=== PATIENT | male | born 1990 | race Caucasian/White ===

== ENCOUNTER 2020-07-27 22:34 | Emergency (ER) | payer SELFPAY ==
[2020-07-27 22:38] VITALS: BP 130/86; PULSE 95; RESP 16; TEMP 36.5; O2SAT 100
[2020-07-27 23:05] VITALS: BP 116/79; PULSE 84; RESP 15; O2SAT 96
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
--- NOTE | 2020-07-27 23:53 | PC.NURSE ---
pt gave this rn permission to call his mother and let her know hes here. mother did not answer, no voicemail set up at this time
[2020-07-28 00:25] VITALS: BP 94/68; PULSE 84; RESP 20; O2SAT 94
[2020-07-28 00:55] VITALS: BP 101/76; PULSE 86; RESP 14; O2SAT 98
--- NOTE | 2020-07-28 01:35 | PC.NURSE ---
pt ambulated in hallway with steady gait. notified. pt also awake, attempting to call mother.
[2020-07-28 01:44] VITALS: BP 108/77; PULSE 80; RESP 18; O2SAT 99
== END 2020-07-28 01:45 | disposition home or self-care (01) ==
PROVIDERS: Emergency Provider Emergency Medicine
DX: T40.601A Poisoning by unspecified narcotics, accidental (unintentional), initial encounter (principal)
CPT/HCPCS: 99281; 99283

== ENCOUNTER 2020-10-22 02:26 | Emergency (ER) | payer SELFPAY ==
[2020-10-22 02:29] VITALS: BP 140/90; PULSE 87; RESP 16; TEMP 36.6; O2SAT 100
--- NOTE | 2020-10-22 03:03 | ED_ITS ---
HPI - General Adult General Chief complaint: Dental/Oral Stated complaint: dental pain Time Seen by Provider: 10/22/20 02:58 History of Present Illness HPI narrative: Patient 30-year-old gentleman who presents emerged department chief complaint of dental pain patient reports the pain began yesterday states that his aching and he has a broken tooth. Patient denies fever reports of localized swelling in his mouth denies any airway compromise denies difficulty swallowing Related Data Allergies Allergy/AdvReac Type Severity Reaction Status Date / Time No Known Allergies Allergy Mild Verified 12/01/09 01:21 Review of Systems Review of Systems: Narrative: A 10 system review of systems was completed on the patient and is negative except for what is stated in the HPI. Nursing and ancillary documentation was reviewed. Exam Narrative: Exam Narrative: GENERAL: Well-appearing, well-nourished, and in no acute distress. HEAD: Normocephalic, atraumatic. EYES: PERRLA and EOMI. ENT: Nares clear, no rhinorrhea or epistaxis. Mucous membranes moist. There is swelling in the lower mandible in the molar area NECK: Supple. CHEST: Clear to auscultation. No respiratory distress. HEART: Regular rate and rhythm. No murmur heard. Normal peripheral pulses. ABDOMEN: Soft, nontender, nondistended, normal active bowel sounds. EXTREMITIES: Normal range of motion. No edema. SKIN: Warm, dry, no rash. NEURO: No focal deficits. Alert and oriented x3. PSYCH: Normal mood and affect. Course Vital Signs Vital signs: Vital Signs Temperature 36.6 C 10/22/20 02:29 Pulse Rate 87 10/22/20 02:29 Respiratory Rate 16 10/22/20 02:29 Blood Pressure 140/90 10/22/20 02:29 Pulse Oximetry 100 10/22/20 02:29 Temperature 36.6 C 10/22/20 02:29 Pulse Rate 87 10/22/20 02:29 Respiratory Rate 16 10/22/20 02:29 Blood Pressure 140/90 10/22/20 02:29 Pulse Oximetry 100 10/22/20 02:29 Medical Decision Making Vital Signs Vital Signs: Vital Signs Temperature 36.6 C 10/22/20 02:29 Pulse Rate 87 10/22/20 02:29 Respiratory Rate 16 10/22/20 02:29 Blood Pressure 140/90 10/22/20 02:29 Pulse Oximetry 100 10/22/20 02:29 Temperature 36.6 C 10/22/20 02:29 Pulse Rate 87 10/22/20 02:29 Respiratory Rate 16 10/22/20 02:29 Blood Pressure 140/90 10/22/20 02:29 Pulse Oximetry 100 10/22/20 02:29 Discharge Plan Discharge Clinical Impression: Dental abscess, Toothache Patient Disposition: Home, Self-Care Condition: Stable Instructions: Antibiotic Form, Dental Abscess (ED), Toothache (ED) Additional Instructions: Please follow-up with your dentist as soon as possible Prescriptions: New amoxicillin 500 mg capsule 500 mg PO Q12H 10 Days Qty: 20 RF: 0 ibuprofen 800 mg tablet 800 mg PO TID PRN (Reason: pain) Qty: 21 RF: 0 Follow-up/Referrals: PHYSICIAN,SPLITTING MACHINE OPERATOR HELPER [Primary Care Provider] - Ramez Montilla MD [Physician] - 1 Week Stand Alone Forms: Work/School Release IP Time of Disposition: 03:16
[2020-10-22] MEDS: IBUPROFEN 400 MG TABLET 800 MG PO (03:23)
[2020-10-22] MEDS: AMOXICILLIN 500 MG CAPSULE PO (03:23)
[2020-10-22 03:45] VITALS: BP 138/87; PULSE 79; RESP 18; O2SAT 99
== END 2020-10-22 03:47 | disposition home or self-care (01) ==
PROVIDERS: Emergency Provider Emergency Medicine
DX: K04.7 Periapical abscess without sinus (principal); K08.89 Other specified disorders of teeth and supporting structures
CPT/HCPCS: 99283; A9270

== ENCOUNTER 2021-11-27 18:59 | Emergency (ER) | payer OTHER, SELFPAY ==
--- NOTE | ~2021-11-27 | CT_ITS ---
EXAMINATION: CT abdomen pelvis wo con DATE: 11/27/2021 19:44 INDICATION: Left flank pain TECHNIQUE: Computed tomography (CT) of the abdomen and pelvis was performed without intravenous contr ast. The dose-length product (DLP) was 416.18 mGy-cm. Automated exposure control and iterative recons truction technique were employed. COMPARISON: None FINDINGS: The lung bases are clear. The heart size is normal. The liver, spleen, gallbladder, and adr enal glands are normal. There is fatty replacement in the head and body of the pancreas. The right ki dney is unremarkable. There is a 3 mm stone at the left ureterovesicular junction which causes mild l eft hydroureteronephrosis. No pathologically enlarged abdominal or pelvic lymph nodes are identified. There is no free intraperitoneal gas or evidence of bowel obstruction. IMPRESSION: 1. 3 mm stone at the left ureterovesicular junction causing mild left hydroureteronephrosis. Reviewed, dictated and finalized at location F. IMPRESSION: 1. 3 mm stone at the left ureterovesicular junction causing mild left hydrouret eronephrosis.
[2021-11-27 19:01] VITALS: BP 141/89; PULSE 100; RESP 18; TEMP 36.6; O2SAT 100
[2021-11-27] MEDS: SODIUM CHLORIDE 0.9% IV 1,000 ML 999 ML IV CONT ×2 (19:25→20:39)
--- NOTE | 2021-11-27 19:45 | PC.NURSE ---
patient refused pain meds.
[2021-11-27] MEDS: TAMSULOSIN HCL 0.4 MG CAPSULE PO (20:34)
--- NOTE | 2021-11-27 21:25 | ED.GENADULT ---
HPI - General Adult General Chief complaint: Abdominal Pain Stated complaint: left flank Time Seen by Provider: 11/27/21 19:04 History of Present Illness HPI narrative: Patient is a 31-year-old male who presents ER with concerns for kidney stone. Began having pain on his left side yesterday. Child had severe pain in his left lower quadrant make him feel like he needs to be. It goes into his testicle. Associate with hematuria. No fevers or chills or sweats. No dysuria. No alleviating factors at home. Related Data Allergies Allergy/AdvReac Type Severity Reaction Status Date / Time No Known Allergies Allergy Mild Verified 12/01/09 01:21 Review of Systems Review of Systems: All systems reviewed & are unremarkable except as noted in HPI and below Constitutional: Constitutional: Denies chills and Denies fever(s) Gastrointestinal: Gastrointestinal: Reports abdominal pain, Reports nausea and Denies vomiting Genitourinary: Genitourinary: Reports hematuria, Reports oliguria, Denies dysuria and Reports testicular pain PMFSH Past Medical History Medical History (Updated 11/27/21 @ 21:30 by Alexandru Youngblood MD) Kidney stones Surgical History Surgical History (Updated 11/27/21 @ 21:28 by Alexandru Youngblood MD) No pertinent past surgical history Social History Social History (Updated 11/27/21 @ 21:28 by Alexandru Youngblood MD) Social History: History of tobacco use Exam Narrative: GENERAL: Uncomfortable-appearing, well-nourished, and in no acute distress. HEAD: Normocephalic, atraumatic. ENT: Mucous membranes moist. CHEST: Clear to auscultation. No respiratory distress. HEART: Regular rate and rhythm. Normal peripheral pulses. ABDOMEN: Soft, mild palpation left lower quadrant, nondistended. EXTREMITIES: Normal range of motion. No edema. SKIN: Warm, dry, no rash. NEURO: Alert and oriented x3. PSYCH: Normal mood and affect. Course Course Emergency Course: Pain improved with Toradol. Will give second liter of fluid as patient had difficulty urinating. Vital Signs Vital signs: Vital Signs Temperature 97.9 F 11/27/21 19:01 Pulse Rate 100 11/27/21 19:01 Respiratory Rate 18 11/27/21 19:01 Blood Pressure 141/89 H 11/27/21 19:01 Pulse Oximetry 100 11/27/21 19:01 Oxygen Delivery Room Air 11/27/21 19:01 Temperature 97.9 F 11/27/21 19:01 Pulse Rate 100 11/27/21 19:01 Respiratory Rate 18 11/27/21 19:01 Blood Pressure 141/89 H 11/27/21 19:01 Pulse Oximetry 100 11/27/21 19:01 Oxygen Delivery Room Air 11/27/21 19:01 Medical Decision Making Vital Signs Vital Signs: Vital Signs Temperature 97.9 F 11/27/21 19:01 Pulse Rate 100 11/27/21 19:01 Respiratory Rate 18 11/27/21 19:01 Blood Pressure 141/89 H 11/27/21 19:01 Pulse Oximetry 100 11/27/21 19:01 Oxygen Delivery Room Air 11/27/21 19:01 Temperature 97.9 F 11/27/21 19:01 Pulse Rate 100 11/27/21 19:01 Respiratory Rate 18 11/27/21 19:01 Blood Pressure 141/89 H 11/27/21 19:01 Pulse Oximetry 100 11/27/21 19:01 Oxygen Delivery Room Air 11/27/21 19:01 Lab Data Labs: Lab Results 11/27/21 Range/Units 21:17 Urine Color Yellow (Yellow) Urine Appearance Slightly cloudy (Clear) Urine pH 5.5 (5.0-9.0) Ur Specific [place] 1.025 (1.001-1.035) Urine Protein 1+ H (Negative) mg/dL Urine Glucose (UA) Negative (Negative) mg/dL Urine Ketones Negative (Negative) mg/dL Ur Blood (Man) 3+ H (Negative) Urine Nitrate Negative (Negative) Urine Bilirubin Negative (Negative) Urine Urobilinogen 0.2 (<2.0) mg/dL Leukocyte Esterase Rfl Negative (Negative) SHERRIE/UL Urine RBC >75 H (0-2) /hpf Urine WBC 4-6 H /hpf Ur Squamous Epith Cells Rare (Few) /hpf Urine Bacteria Trace /hpf Hyaline Casts 3-4 H (None) /lpf Urine Mucus Moderate H /lpf Discharge Plan Discharge Clinical Impression: Ureterolithiasis Patient Disposit
[2021-11-27 21:28] LABS: Add Urine Microscopic? YES; Appearance Urine Slightly Cloudy (Clear); Bilirubin Urine Negative (Negative); Blood Urine 3+ (Negative); Color Urine Yellow (Yellow); Glucose Urine UA Negative (Negative); Ketones Urine Negative (Negative); Leukocyte Esterase Ur Negative LEU/UL (Negative); Nitrate Urine Negative (Negative); Protein Urine 1+ mg/dL (Negative); Specific Grav Ur 1.025 (1.001-1.035); Urobilinogen Urine 0.2 mg/dL (<2.0); pH Urine 5.5 (5.0-9.0)
[2021-11-27 21:34] LABS: Bacteria Urine Trace /hpf; Mucus Urine Moderate /lpf; RBC Urine >75 /hpf (0-2); Squamous Epithelial Cell Urine Rare /hpf (Few)
[2021-11-27 21:59] VITALS: BP 132/87; PULSE 88; RESP 18; O2SAT 99
== END 2021-11-27 22:00 | disposition home or self-care (01) ==
PROVIDERS: Emergency Provider Emergency Medicine
DX: N13.2 Hydronephrosis with renal and ureteral calculous obstruction (principal); Z87.442 Personal history of urinary calculi
CPT/HCPCS: 74176; 81001; 96360; 96361; 99284; A9270; J7030

== ENCOUNTER 2022-11-28 20:21 | Emergency (ER) | payer MEDICAID, SELFPAY ==
[2022-11-28 20:24] VITALS: BP 147/98; PULSE 135; RESP 20; TEMP 36; O2SAT 99
--- NOTE | 2022-11-28 20:29 | ECG_ITS ---
Measurements Intervals [place] Rate: 122 P: 47 MN: 122 QRS: 15 QRSD: 79 T: 34 QT: 301 QTc: 430 Interpretive Statements SINUS TACHYCARDIA ABNORMAL RHYTHM ECG NO PREVIOUS ECG AVAILABLE FOR COMPARISON Electronically Signed On 11-29-2022 8:28:15 CDT by Bryan Renteria M.D.
--- NOTE | 2022-11-28 20:44 | ED.DIZZY ---
HPI - Dizziness General Chief Complaint: Dizziness Stated Complaint: lightheaded, ingestion Time Seen by Provider: 11/28/22 20:28 History of Present Illness HPI Narrative: 32-year-old male presented the emergency department for evaluation for possible ingestion. Patient reports that he was being arrested by the police and ingested something. Patient would not initially what he ingested but did ultimately admit that it was fentanyl. Patient states he does use opiates almost daily. Patient was alert oriented and well-appearing. Patient does not appear acutely intoxicated. Patient reported that suggestion was to avoid arrest and was not an attempt at self-harm. Related Data Allergies Allergy/AdvReac Type Severity Reaction Status Date / Time No Known Allergies Allergy Mild Verified 11/28/22 20:27 Review of Systems Review of Systems: All systems reviewed & are unremarkable except as noted in HPI and below PMFSH Past Medical History Medical History (Updated 11/29/22 @ 06:47 by Avinash Hamilton MD) Kidney stones Surgical History Surgical History (Updated 11/27/21 @ 21:28 by Alexandru Youngblood MD) No pertinent past surgical history Social History Social History (Updated 11/27/21 @ 21:28 by Alexandru Youngblood MD) Social History: History of tobacco use Exam Narrative: APPEARANCE: Well appearing, no pain, no distress, well-nourished. HEAD: normocephalic, atraumatic. EYES: PERRLA/EOMI, conjunctivae clear. NOSE: Normal no drainage NECK: Supple. No adenopathy, no masses. RESPIRATORY: Airway patent, respirations nonlabored. Clear to auscultation bilaterally, no rales, rhonchi, wheezing. CARDIOVASCULAR: Regular rate and rhythm without murmurs rubs or gallops. ABDOMINAL: Soft, nontender, nondistended, normal bowel sounds MUSCULOSKELETAL: Moves all extremities. Strength/ROM intact, No edema, No calf tenderness. NEURO: Alert. Cranial nerves II through XII intact. Grossly intact SKIN: Warm, dry. Normal Color Course Course Emergency Course: 32-year-old male presented to the emergency department for evaluation of ingestion. Patient was clinically appropriate and eloped from the hospital after after evaluation. Vital Signs Vital signs: Vital Signs Temperature 96.8 F L 11/28/22 20:24 Pulse Rate 135 H 11/28/22 20:24 Respiratory Rate 20 11/28/22 20:24 Blood Pressure 147/98 H 11/28/22 20:24 Pulse Oximetry 99 11/28/22 20:24 Oxygen Delivery Room Air 11/28/22 20:24 Temperature 96.8 F L 11/28/22 20:24 Pulse Rate 135 H 11/28/22 20:24 Respiratory Rate 20 11/28/22 20:24 Blood Pressure 147/98 H 11/28/22 20:24 Pulse Oximetry 99 11/28/22 20:24 Oxygen Delivery Room Air 11/28/22 20:24 Discharge Plan Discharge Clinical Impression: Drug ingestion Patient Disposition: Elopement After Seen by Prov Condition: Stable Prescriptions: No Action hydrocodone-acetaminophen 5-325 mg tablet 1 tablet PO Q6H PRN (Reason: pain) Qty: 10 0RF tamsulosin 0.4 mg capsule 0.4 mg PO DAILY Qty: 5 0RF ondansetron 4 mg tablet,disintegrating 4 mg PO Q6H PRN (Reason: nausea and vomiting) Qty: 10 0RF amoxicillin 500 mg capsule 500 mg PO Q12H 10 Days Qty: 20 0RF ibuprofen 800 mg tablet 800 mg PO TID PRN (Reason: pain) Qty: 21 0RF Follow-up/Referrals: PHYSICIAN,OIL EXPLORATION ENGINEER [Primary Care Provider] -
--- NOTE | 2022-11-28 20:45 | PC.NURSE ---
2044 - Pt was seen by provider then walked out of the room. Pt told RN that he was leaving. Provider made aware.
== END 2022-11-28 20:45 | disposition left against medical advice (07) ==
PROVIDERS: Emergency Provider Emergency Medicine
DX: T40.411A Poisoning by fentanyl or fentanyl analogs, accidental (unintentional), initial encounter (principal); Z87.442 Personal history of urinary calculi; R00.0 Tachycardia, unspecified
CPT/HCPCS: 93005; 99283